=== PATIENT | female | born 1990 ===

== ENCOUNTER 2017-03-15 16:26 | Emergency (ER) | payer OTHER ==
[~2017-03-15] VITALS: Ht 175.3 cm; Wt 50.8 kg
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
[2017-03-15] MEDS ORDERED: CYCL-331 PO (17:57)
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
[2017-03-15 18:15] VITALS: BP 129/82
== END 2017-03-15 18:20 | disposition home or self-care (01) ==
LOC: ER 16:26
DX: S16.1XXA Strain of muscle, fascia and tendon at neck level, initial encounter (principal); J45.909 Unspecified asthma, uncomplicated; V89.2XXA Person injured in unspecified motor-vehicle accident, traffic, initial encounter; Y93.89 Activity, other specified; Y99.8 Other external cause status; Y92.488 Other paved roadways as the place of occurrence of the external cause
CPT/HCPCS: 70450; 72125; 99284-25